=== PATIENT | female | born 1990 | race Two or more races ===

== ENCOUNTER → 2024-11-02 | Outpatient (CLI) | payer OTHER, SELFPAY ==
--- NOTE | 2024-11-02 11:28 | XR_ITS ---
Examination: Pelvic ultrasound, transabdominal, complete Technique: Transabdominal ultrasound of the pelvis performed using grayscale imaging Date and time of exam: November 02, 2024 1134 hours INDICATIONS: Pelvic pain beginning 15 years ago, history ovarian cystic disease. FINDINGS: Uterus 9.1 cm endometrial stripe 1.2 cm No uterine mass or intrauterine gestation. Absent right ovary. Left ovary 5.5 cm arterial flow, 3.2 x 2.9 x 3.4 cm cyst IMPRESSION: Left ovarian simple cyst 3.2 x 2.9 x 3.4 cm
== END | disposition home or self-care (01) ==
LOC: CDIM 11:13
PROVIDERS: PCP Nurse Practitioner; Referring Provider Nurse Practitioner; Visit Provider Nurse Practitioner
DX: N83.292 Other ovarian cyst, left side (principal)
CPT/HCPCS: 76856

== ENCOUNTER → 2025-01-17 | Outpatient (CLI) | payer OTHER, SELFPAY ==
[2025-01-17 09:21] LABS: HCG Qualitative,Urine Negative
--- NOTE | 2025-01-17 11:30 | XR_ITS ---
Examination: CT abdomen and pelvis without contrast. Coronal 3-D reconstructions. Sagittal 2-D reconstructions. Date and time of exam: January 17, 2025, 1134 hours INDICATIONS: Right lower abdominal palpable mass and pain 2 years CTDI: vol (mGy): 7.83 DLP: (mGycm): 126 Technique: Axial images of the abdomen have been obtained, 3 mm slice thickness Intravenous contrast material has not been administered. Low dose protocols were performed. One or more of the following dose reduction techniques were used; automated exposure control, adjustment of the mA and/or KV according to patient size, use of iterative reconstruction technique. Findings: No focal liver or splenic lesions No gallstones No pancreatic mass Bilateral 1 to 2 mm renal calculi, no hydronephrosis or ureteral calculi Aorta normal size No definite pericecal inflammatory change,. Retroverted uterus Mild free fluid in the pelvis Intact urinary bladder Moderate disc narrowing L5-S1 IMPRESSION: Tiny bilateral nonobstructing renal calculi, no hydronephrosis or ureteral calculi No bowel obstruction or CT findings of appendicitis on this noncontrast study Mild free fluid in the pelvis, consider pelvic sonography follow-up
== END | disposition home or self-care (01) ==
LOC: CCTX 11:16
PROVIDERS: PCP Nurse Practitioner; Referring Provider Nurse Practitioner; Visit Provider Nurse Practitioner
DX: N20.0 Calculus of kidney (principal); Z32.00 Encounter for pregnancy test, result unknown
CPT/HCPCS: 74176; 81025